=== PATIENT | female | born 2000 | race Caucasian/White ===

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

== ENCOUNTER 2022-05-17 19:55 | Emergency (ER) | payer BC ==
[~2022-05-17 19:55] MED LIST: CIPR250T3; ENAL10TA16; [UNRECOGNIZED DRUG - CODE]
[2022-05-17 20:36] LABS: INR 0.9 (0.8-1.4); PROTHROMBIN TIME PATIENT 12.5 SEC (12.2-14.7)
--- NOTE | 2022-05-17 20:40 | Diagnostic Imaging Report ---
EXAM: Chest 1 view, AP/PA only. INDICATION: Shortness of air. COMPARISON: None. FINDINGS: Normal heart size and central pulmonary vascularity. Lungs are clear. No pleural effusion or pneumothorax. No acute osseous finding. IMPRESSION: No acute cardiopulmonary finding. Dictated by: Dictated on workstation # [id number]
[2022-05-17 20:41] LABS: ALBUMIN 4.1 GM/DL (3.2-4.5); CHLORIDE 106 MMOL/L (98-107); POTASSIUM 4.5 MMOL/L (3.6-5.0); SODIUM 134 MMOL/L (135-145)
[2022-05-17 20:42] LABS: CALCIUM 9.2 MG/DL (8.5-10.1)
[2022-05-17 20:43] LABS: GLUCOSE 74 MG/DL (70-105)
[2022-05-17 20:44] LABS: TOTAL PROTEIN 7.7 GM/DL (6.4-8.2)
[2022-05-17 20:45] LABS: BILIRUBIN,TOTAL 0.3 MG/DL (0.1-1.0); CARBON DIOXIDE 16 MMOL/L (21-32)
[2022-05-17 20:47] LABS: ALKALINE PHOSPHATASE 75 U/L (40-136); CREATININE SERUM 2.35 MG/DL (0.60-1.30); GFR ESTIMATED 30; MAGNESIUM 1.8 MG/DL (1.6-2.4)
[2022-05-17 20:48] LABS: BUN/CREATININE RATIO 11
[2022-05-17 20:50] LABS: ALANINE AMINOTRANSFERASE 18 U/L (0-55)
--- NOTE | 2022-05-17 20:55 | ED Respiratory ---
General Chief Complaint: Respiratory Problems Stated Complaint: SOA,CP,BOTH LEGS SWELLING,HAS KIDNEY DISEASE Nursing Triage Note: TO ED VIA POV AND AMBULATORY TO ROOM 9 WITH C/O INCREASING SOA FOR SEVERAL DAYS, BUT "WORSE TODAY". ALSO C/O CP AND "EXTREME UPPER ABDOMEN PAIN". TOLD BY "SPECIALIST" TO COME TO ER FOR SONO OF LEGS AND CXR. HX OF POLYCYSTIC KIDNEY DISEASE. Source: patient Exam Limitations: no limitations History of Present Illness Date Seen by Provider: May 17, 2022 Time Seen by Provider: 20:32 Initial Comments This is a 22-year-old female with a history of polycystic kidney disease who presented to the ER with complaints of shortness of air, fluid retention, chest pain that radiates into her upper abdomen and around her back. Her symptoms have been present over the past month and she has been in communication with her benefits advisor due to side effects of her Jynarque. States she started Jynarque in August of this year and has been doing well up until this past month. States that her symptoms worsened this morning. She called her benefits advisor and was instructed to come to the ER for ultrasound of her legs and chest x-ray due to concerns for retention and DVTs. States that she discontinued her Jynarque on Sunday (6 days ago). Last menstrual period was the th of last month. She did have labs drawn yesterday and her creatinine was 1.8 which was down from her previous 2.4, her GFR was 38. States discomfort is more pressure in nature, worse with sitting up, standing, bending over. At this time she is resting comfortably currently rating discomfort 4 out of 10. States that her legs feel "heavier" but does not have any edema or erythema. Denies fever, chills, cough, nausea, vomiting Allergies and Home Medications Allergies Coded Allergies: No Known Drug Allergies (Unverified , 09/04/21) Patient Home Medication List Home Medication List Reviewed: Yes Ciprofloxacin HCl (Ciprofloxacin HCl) 250 Mg Tablet, (Reported) Entered as Reported by: ZAIRA FRY on 09/04/212346 Enalapril Maleate (Enalapril Maleate) 10 Mg Tablet, (Reported) Entered as Reported by: ZAIRA FRY on 09/04/212346 Tolvaptan (Jynarque) 1 Each Tablet.seq, (Reported) Entered as Reported by: ZAIRA FRY on 09/04/21 1571 Review of Systems Review of Systems Constitutional: see HPI Past Ctbzneu-Ugypeq-Unbmuq Hx Patient Social History Tobacco Use?: No Substance use?: No Alcohol Use?: No Immunizations Up To Date Influenza Vaccine Up-to-Date: No; Not Current COVID19 Vaccine Sports Official: STATES HAS HAD 2 VACCINES Past Medical History Surgery/Hospitalization HX: polycystic kidney disease, finger, oral surgery, htn Surgeries: Yes (SURGERY ON HER FINGER, ORAL SURGERY) Orthopedic Respiratory: No Cardiac: Yes (BP WITHOUT MEDICATIONS 140'S/100'S) Hypertension Neurological: No Last Menstrual Period: Apr 23, 2022 Reproductive Disorders: No Genitourinary: Yes (DX AGE 14) Polycystic Kidney Disease Gastrointestinal: No Musculoskeletal: No Endocrine: No HEENT: No Cancer: No Psychosocial: No Integumentary: No Blood Disorders: No Physical Exam Vital Signs - First Documented Capillary Refill : Less Than 3 Seconds Height: '" Weight: lbs. oz. kg; BMI Method: General Appearance: WD/WN, no apparent distress Eyes: Bilateral Eye Normal Inspection, Bilateral Eye PERRL, Bilateral Eye EOMI HEENT: PERRL/EOMI, normal ENT inspection, pharynx normal Neck: full range of motion, supple, normal inspection Respiratory: lungs clear, normal breath sounds, no respiratory distress, no accessory muscle use Cardiovascular: regular rate, rhythm, no edema, no murmur; No gallop/S3, No friction rub Gastrointestinal: normal bowel sounds, non tender, soft Extremities: normal range of motion, non-tender, normal inspection Neurologic/Psychiatric: no motor/sensory deficits, alert, normal mood/affect, oriented x 3 Skin: normal color, warm/dry Progress/Results/Core Measures Suspected Sepsis SIRS Temperature: Pulse: 72 Respiratory Rate: 18 Laboratory Tests 05/17/22 22:59: White Blood Count 10.5 Blood Pressure 147 /89 Mean: 108 Laboratory Tests 05/17/22 20:15: Creatinine 2.35H, INR Comment 0.9, Total Bilirubin 0.3 05/17/22 22:59: Platelet Count 302 Results/Orders Lab Results Laboratory Tests Test 05/17/22 20:15 05/17/22 20:19 05/17/22 21:25 05/17/22 22:59 Range/Units Prothrombin Time 12.5 12.2-14.7 SEC INR Comment 0.9 0.8-1.4 Activated Partial Thromboplast Time 27 24-35 SEC D-Dimer 0.47 0.00-0.49 UG/ML Sodium Level 134 L 135-145 MMOL/L Potassium Level 4.5 3.6-5.0 MMOL/L Chloride Level 106 98-107 MMOL/L Carbon Dioxide Level 16 L 21-32 MMOL/L Anion Gap 12 5-14 MMOL/L Blood Urea Nitrogen 25 H 7-18 MG/DL Creatinine 2.35 H 0.60-1.30 MG/DL Estimat Glomerular Filtration Rate 30 BUN/Creatinine Ratio 11 Glucose Level 74 70-105 MG/DL Calcium Level 9.2 8.5-10.1 MG/DL Corrected Calcium 9.1 8.5-10.1 MG/DL Magnesium Level 1.8 1.6-2.4 MG/DL Total Bilirubin 0.3 0.1-1.0 MG/DL Aspartate Amino Transf (AST/SGOT) 23 5-34 U/L Alanine Aminotransferase (ALT/SGPT) 18 0-55 U/L Alkaline Phosphatase 75 40-136 U/L Total Creatine Kinase 97 29-168 U/L Creatine Kinase MB 0.6 <6.6 NG/ML Myoglobin 38.7 10.0-92.0 NG/ML Troponin I < 0.028 <0.028 NG/ML Total Protein 7.7 6.4-8.2 GM/DL Albumin 4.1 3.2-4.5 GM/DL Lipase 32 8-78 U/L Influenza Type A (RT-PCR) Not Detected Not Detecte Influenza Type B (RT-PCR) Not Detected Not Detecte SARS-CoV-2 RNA (RT-PCR) Not Detected Not Detecte Blood Gas Puncture Site RRAD Blood Gas Patient Temperature 98.0 Arterial Blood pH 7.37 7.37-7.43 Arterial Blood Partial Pressure CO2 33 L 35-45 MMHG Arterial Blood Partial Pressure O2 109 H 79-93 MMHG Arterial Blood HCO3 19 L 23-27 MMOL/L Arterial Blood Total CO2 20.0 L 21.0-31.0 MMOL/L Arterial Blood Oxygen Saturation 98 94-100 % Arterial Blood Base Excess -5.4 L -2.5-2.5 MMOL/L Gualberto Test YES-POS Blood Gas Ventilator Setting NO Blood Gas Inspired Oxygen RA White Blood Count 10.5 4.3-11.0 10^3/uL Red Blood Count 3.93 3.80-5.11 10^6/uL Hemoglobin 11.2 L 11.5-16.0 g/dL Hematocrit 33 L 35-52 % Mean Corpuscular Volume 85 80-99 fL Mean Corpuscular Hemoglobin 29 25-34 pg Mean Corpuscular Hemoglobin Concent 34 32-36 g/dL Red Cell Distribution Width 12.4 10.0-14.5 % Platelet Count 302 130-400 10^3/uL Mean Platelet Volume 10.5 9.0-12.2 fL Immature Granulocyte % (Auto) 0 % Neutrophils (%) (Auto) 61 42-75 % Lymphocytes (%) (Auto) 32 12-44 % Monocytes (%) (Auto) 5 0-12 % Eosinophils (%) (Auto) 2 0-10 % Basophils (%) (Auto) 1 0-10 % Neutrophils # (Auto) 6.4 1.8-7.8 10^3/uL Lymphocytes # (Auto) 3.3 1.0-4.0 10^3/uL Monocytes # (Auto) 0.6 0.0-1.0 10^3/uL Eosinophils # (Auto) 0.2 0.0-0.3 10^3/uL Basophils # (Auto) 0.1 0.0-0.1 10^3/uL Immature Granulocyte # (Auto) 0.0 0.0-0.1 10^3/uL B-Type Natriuretic Peptide 14.7 <100.0 PG/ML My Orders Orders - JUJU TAVARES PRINCIPAL ARCHAEOLOGIST Cbc With Automated Diff (05/17/22 20:07) Comprehensive Metabolic Panel (05/17/22 20:07) Bnp Shannen (05/17/22 20:07) Chest 1 View, Ap/Pa Only (05/17/22 20:07) Covid 19 Inhouse Test (05/17/22 20:07) Influenza A And B By Pcr (05/17/22 20:07) Ekg Tracing (05/17/22 20:07) Magnesium (05/17/22 20:07) Myoglobin Serum (05/17/22 20:07) Protime With Inr (05/17/22 20:07) Partial Thromboplastin Time (05/17/22 20:07) O2 (05/17/22 20:07) Monitor-Rhythm Ecg Trace Only (05/17/22 20:07) Ed Iv/Invasive Line Start (05/17/22 20:07) Creatine Kinase (05/17/22 20:07) Creatine Kinase Mb (05/17/22 20:07) Lipase (05/17/22 20:07) Troponin I Crisp (05/17/22 20:07) Fibrin Degradation Products (05/17/22 20:27) Arterial Blood Gas (05/17/22 21:10) Arterial Blood Gas (05/17/22 21:25) Vital Signs/I&O 05/17/22 05/17/22 05/17/22 20:04 20:04 23:35 Temp 36.8 36.7 Pulse 72 88 Resp 18 18 B/P (MAP) 147/89 (108) 147/88 Pulse Ox 100 95 O2 Delivery Room Air Room Air Room Air Capillary Refill : Less Than 3 Seconds Blood Pressure Mean: 108 Progress Note : Progress Note Two missed urine collections. She has compensated metabolic acidosis, discussed starting sodium bicarb tablet. Has concerns for fluid retention and will plan to wait till morning and consult with her benefits advisor. Has no urinary tract symptoms, no flank pain. Has been on Lisinopril for several years. Diagnostic Imaging Diagonstic Imaging: Xray Plain Films/CT/US/NM/MRI: chest Comments [facility], [place] NAME: VASILE LUO Yumiko [facility] REC#: [id number] PT STATUS: REG ER : 2000 PHYSICIAN: JUJU TAVARES PRINCIPAL ARCHAEOLOGIST ADMIT DATE: 05/17/22/ER Draft Date of Exam:05/17/22 CHEST 1 VIEW, AP/PA ONLY EXAM: Chest 1 view, AP/PA only. INDICATION: Shortness of air. COMPARISON: None. FINDINGS: Normal heart size and central pulmonary vascularity. Lungs are clear. No pleural effusion or pneumothorax. No acute osseous finding. IMPRESSION: No acute cardiopulmonary finding. Dictated on workstation # [id number] Dict: 05/17/222036 Trans: 05/17/222038 [facility] [id number] Interpreted by: JEREMY MERCHANT MD Electronically signed by: Reviewed: Reviewed by Me Departure Impression Primary Impression: PKD (polycystic kidney disease) Additional Impression: Compensated metabolic acidosis Disposition: HOME, SELF-CARE Condition: Improved Departure-Patient Inst. Decision time for Depature: 23:27 Referrals: NO,LOCAL PHYSICIAN (PCP/Family) Primary Care Physician Patient Instructions: Polycystic Kidney Disease, Metabolic Acidosis Add. Discharge Instructions: Plan: 1. Call your benefits advisor first thing in the morning and review lab results. You were given copies of all your results from your emergency department visit today. 2. Return to the ER if you have any new, concerning, worsening symptoms. 3. If you are unable to have close follow-up and have worsening symptoms again please return to emergency department. All discharge instructions reviewed with patient and/or family. Voiced understanding. JUJU TAVARES PRINCIPAL ARCHAEOLOGIST May 17, 2022 20:55
[2022-05-17 20:57] LABS: CREATINE KINASE MB 0.6 NG/ML (<6.6)
[2022-05-17 22:01] LABS: ABG BASE EXCESS -5.4 MMOL/L (-2.5-2.5); ABG OXYGEN SATURATION 98 % (94-100); ABG PCO2 33 MMHG (35-45); ABG PH 7.37 (7.37-7.43); ABG PO2 109 MMHG (79-93); ALLENS TEST YES-POS
[2022-05-17 22:02] LABS: INSPIRED O2 RA; VENTILATOR NO
[2022-05-17 23:06] LABS: BASOPHILS # (AUTO) 0.1 10^3/uL (0.0-0.1); BASOPHILS % (AUTO) 1 % (0-10); EOSINOPHILS # (AUTO) 0.2 10^3/uL (0.0-0.3); EOSINOPHILS % (AUTO) 2 % (0-10); HEMATOCRIT 33 % (35-52); HEMOGLOBIN 11.2 g/dL (11.5-16.0); LYMPHOCYTES # (AUTO) 3.3 10^3/uL (1.0-4.0); LYMPHOCYTES % (AUTO) 32 % (12-44); MEAN CORPUSCULAR HEMOGLOBIN 29 pg (25-34); MEAN CORPUSCULAR HGB CONC 34 g/dL (32-36); MEAN CORPUSCULAR VOLUME 85 fL (80-99); MEAN PLATELET VOLUME 10.5 fL (9.0-12.2); MONOCYTES # (AUTO) 0.6 10^3/uL (0.0-1.0); MONOCYTES % (AUTO) 5 % (0-12); NEUTROPHILS # (AUTO) 6.4 10^3/uL (1.8-7.8); NEUTROPHILS % (AUTO) 61 % (42-75); PLATELET COUNT 302 10^3/uL (130-400); WHITE BLOOD COUNT 10.5 10^3/uL (4.3-11.0)
[2022-05-17 23:35] VITALS: BP 147/88
== END 2022-05-17 23:35 | disposition home or self-care (01) ==
LOC: EDUNIT# 19:55 → ER 19:57
DX: Q61.3 Polycystic kidney, unspecified (principal); E87.20 Acidosis, unspecified; Z20.822 Contact with and (suspected) exposure to COVID-19
CPT/HCPCS: 36415; 71045; 80053; 82550; 82553; 82805; 83690; 83735; 83874; 83880; 84484; 85025; 85379; 85610; 85730; 87636; 93005; 93041

== ENCOUNTER 2022-05-19 19:57 | Emergency (ER) | payer BC ==
[~2022-05-19] VITALS: Ht 172 cm; Wt 70.0 kg
[2022-05-19] MEDS ORDERED: ASPIRIN 81 MG CHEW (CHILDREN'S ASA) PO ONE (20:15)
--- NOTE | 2022-05-19 20:30 | ED General ---
General Chief Complaint: General Problems/Pain Stated Complaint: SOA/CHEST PAIN/KIDNEY PAIN/DIZZINESS/FATIGUE Nursing Triage Note: Patient presented to the ER tonight with complaints of chest pain, soa, fatigue, swelling in legs and feet. She advised she was seen in the department two days ago and was diagnosed with metabolic acidosis. She was told that she needed to return if her symptoms worsened. Source of Information: Patient History of Present Illness Date Seen by Provider: May 19, 2022 Time Seen by Provider: 20:04 Initial Comments PT ARRIVES VIA POV FROM HOME WITH HER BOYFRIEND PT STATES SHE HAS BEEN HAVING THESE SYMPTOMS FOR THE LAST MONTH, BUT HAVE BEEN "SEVERE" THE LAST 2 DAYS C/O CHEST PAIN--PAIN IS IN CENTER OF CHEST, DOES NOT RADIATE, COMES AND GOES. PAIN IS "DULL HEAVINESS BUT ALSO SHARP QUICK PAINS TOO" RATES PAIN 8/10 AT WORST, 4/10 NOW HAS NOT TAKEN ANYTHING FOR PAIN PAIN IS WORSE WITH MOVEMENT OR TALKING OR ACTIVITY, HELPS IF SHE LAYS DOWN SHE ALSO C/O SHORTNESS OF BREATH THAT COMES AND GOES--STATES "IT'S THERE MORE THAN IT ISN'T" + SWEATS "HOT FLASHES" BUT DENIES FEVER NO CHILLS C/O FATIGUE C/O DIZZINESS NO COUGH OR URI SYMPTOMS NO NAUSEA/VOMITING/DIARRHEA/ABDOMINAL PAIN NO BACK PAIN HAS HAD SWELLING IN BOTH OF HER LEGS, NOT TODAY HAD ULTRASOUND OF BOTH LEGS EARLIER TODAY--NORMAL / NO DVT PT HAS HISTORY OF HTN, AND HAS BEEN ON MEDICATION X 9 YEARS--LISINOPRIL NO MISSED DOSES OF MEDICATIONS AND TOOK MEDS TODAY PT ALSO HAS POLYCYSTIC KIDNEY DISEASE DX AT AGE 14 WAS STARTED ON A NEW MEDICATION RECENTLY--JYNARQUE / TOLVAPTAN, BUT STOPPED IT ON SUNDAY, DUE TO THESE SYMPTOMS SHE WAS SEEN HERE IN ER 2 DAYS AGO FOR THESE SYMPTOMS, WORK UP WAS ESSENTIALLY NEGATIVE, EXCEPT FOR METABOLIC ACIDOSIS. SHE WAS STARTED ON SODIUM BICARBONATE AT THAT TIME PT IS URINATING NORMALLY AND NOT HAVING URINARY SYMPTOMS LMP 04/27/22. NORMAL. NO CONTROL. HAS NOT TAKEN ANYTHING FOR HER CHEST PAIN PCP: NONE ONLY DR HURLEY SEES IS HER HAND HARDENER IN [place]. HAS AN APPOINTMENT ON Sunday05/22/22 Allergies and Home Medications Allergies Coded Allergies: No Known Drug Allergies (Unverified , 09/04/21) Patient Home Medication List Home Medication List Reviewed: Yes Ciprofloxacin HCl (Ciprofloxacin HCl) 250 Mg Tablet, (Reported) Entered as Reported by: ZAIRA FRY on 09/04/212346 Enalapril Maleate (Enalapril Maleate) 10 Mg Tablet, (Reported) Entered as Reported by: ZAIRA FRY on 09/04/212346 Tolvaptan (Jynarque) 1 Each Tablet.seq, (Reported) Entered as Reported by: ZAIRA FRY on 09/04/212346 Review of Systems Review of Systems Constitutional: see HPI, diaphoresis, dizziness, malaise, weakness EENTM: no symptoms reported Respiratory: see HPI; No cough; dyspnea on exertion; No orthopnea; short of breath; No wheezing Cardiovascular: see HPI, chest pain, edema; No palpitations, No syncope, No vascular heart diseas Gastrointestinal: no symptoms reported; No abdominal pain, No diarrhea, No loss of appetite, No nausea, No vomiting Genitourinary: no symptoms reported Musculoskeletal: no symptoms reported Skin: no symptoms reported Psychiatric/Neurological: No Symptoms Reported Hematologic/Lymphatic: No Symptoms Reported Immunological/Allergic: no symptoms reported Past Qnzqeqn-Jdrirg-Dbspju Hx Patient Social History Tobacco Use?: No Smoking Status: Never a Smoker Smokeless Tobacco Frequency: Never a User Use of E-Cig and/or Vaping dev: No Use of E-Cig and/or Vaping Alexis: Never a User Substance use?: No Alcohol Use?: No Pt feels they are or have been: No Immunizations Up To Date Influenza Vaccine Up-to-Date: Yes; Up-to-Date Second COVID19 Vaccination Negro: 12/02 COVID19 Vaccine 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: 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 Past Medical History Surgery/Hospitalization HX: polycystic kidney disease, finger, oral surgery, htn Surgeries: Yes (SURGERY ON HER FINGER, ORAL SURGERY) Orthopedic Respiratory: No Cardiac: Yes (BP WITHOUT MEDICATIONS 140'S/100'S) Hypertension Neurological: No Reproductive Disorders: No Genitourinary: Yes (DX AGE 14) Polycystic Kidney Disease Gastrointestinal: No Musculoskeletal: No Endocrine: No HEENT: No Cancer: No Psychosocial: No Integumentary: No Blood Disorders: No Physical Exam Vital Signs Vital Signs - First Documented 05/19/22 20:04 Temp 36.7 Pulse 78 Resp 18 B/P (MAP) 126/71 (89) Pulse Ox 98 O2 Delivery Room Air Capillary Refill : Less Than 3 Seconds Height, Weight, BMI Height: '" Weight: lbs. oz. kg; 23.00 BMI Method: General Appearance: No Apparent Distress, WD/WN, Other (DOES NOT APPEAR ILL OR TO BE IN ANY DISCOMFORT OR DISTRESS) HEENT: PERRL/EOMI Neck: Normal Inspection; No JVD Respiratory: Normal Breath Sounds, No Accessory Muscle Use, No Respiratory Distress, Other (MARKED UPPER AND MID STERNAL TENDERNESS--PALPATION DRAMATICALLY REPRODUCES PAIN ) Cardiovascular: Regular Rate, Rhythm, No Edema, No JVD, No Murmur, Normal Peripheral Pulses Gastrointestinal: Non Tender, Soft, Other (ABDOMEN IS ROTUND ) Back: No CVA Tenderness Extremity: Normal Capillary Refill, Normal Inspection, Normal Range of Motion, Non Tender, No Calf Tenderness, No Pedal Edema Neurologic/Psychiatric: Alert, Oriented x3, No Motor/Sensory Deficits, Normal Mood/Affect, strip feeder II-XII Norm as Tested Skin: Normal Color, Warm/Dry; No Rash Focused Exam Lactate Level 05/19/22 20:26: Lactic Acid Level 0.83 Lactic Acid Level Laboratory Tests Test 05/19/22 20:26 Lactic Acid Level 0.83 MMOL/L (0.50-2.00) Progress/Results/Core Measures Suspected Sepsis SIRS Temperature: Pulse: 78 Respiratory Rate: 18 Laboratory Tests 05/19/22 20:26: White Blood Count 10.3 Blood Pressure 126 /71 Mean: 89 05/19/22 20:26: Lactic Acid Level 0.83 Laboratory Tests 05/19/22 20:26: Creatinine 1.79H, Platelet Count 319, Total Bilirubin 0.3 Results/Orders Lab Results Laboratory Tests Test 05/19/22 20:26 05/19/22 20:32 05/19/22 21:12 Range/Units White Blood Count 10.3 4.3-11.0 10^3/uL Red Blood Count 3.99 3.80-5.11 10^6/uL Hemoglobin 11.5 11.5-16.0 g/dL Hematocrit 33 L 35-52 % Mean Corpuscular Volume 84 80-99 fL Mean Corpuscular Hemoglobin 29 25-34 pg Mean Corpuscular Hemoglobin Concent 35 32-36 g/dL Red Cell Distribution Width 12.3 10.0-14.5 % Platelet Count 319 130-400 10^3/uL Mean Platelet Volume 10.8 9.0-12.2 fL Immature Granulocyte % (Auto) 0 % Neutrophils (%) (Auto) 63 42-75 % Lymphocytes (%) (Auto) 29 12-44 % Monocytes (%) (Auto) 6 0-12 % Eosinophils (%) (Auto) 2 0-10 % Basophils (%) (Auto) 1 0-10 % Neutrophils # (Auto) 6.5 1.8-7.8 10^3/uL Lymphocytes # (Auto) 3.0 1.0-4.0 10^3/uL Monocytes # (Auto) 0.6 0.0-1.0 10^3/uL Eosinophils # (Auto) 0.2 0.0-0.3 10^3/uL Basophils # (Auto) 0.1 0.0-0.1 10^3/uL Immature Granulocyte # (Auto) 0.0 0.0-0.1 10^3/uL Erythrocyte Sedimentation Rate 40 H 0-20 MM/HR Sodium Level 134 L 135-145 MMOL/L Potassium Level 5.0 3.6-5.0 MMOL/L Chloride Level 104 98-107 MMOL/L Carbon Dioxide Level 18 L 21-32 MMOL/L Anion Gap 12 5-14 MMOL/L Blood Urea Nitrogen 30 H 7-18 MG/DL Creatinine 1.79 H 0.60-1.30 MG/DL Estimat Glomerular Filtration Rate 41 BUN/Creatinine Ratio 17 Glucose Level 84 70-105 MG/DL Lactic Acid Level 0.83 0.50-2.00 MMOL/L Calcium Level 9.4 8.5-10.1 MG/DL Corrected Calcium 9.4 8.5-10.1 MG/DL Phosphorus Level 3.2 2.3-4.7 MG/DL Magnesium Level 1.7 1.6-2.4 MG/DL Total Bilirubin 0.3 0.1-1.0 MG/DL Aspartate Amino Transf (AST/SGOT) 24 5-34 U/L Alanine Aminotransferase (ALT/SGPT) 18 0-55 U/L Alkaline Phosphatase 78 40-136 U/L Total Creatine Kinase 70 29-168 U/L Creatine Kinase MB 0.5 <6.6 NG/ML Myoglobin 32.1 10.0-92.0 NG/ML Troponin I < 0.028 <0.028 NG/ML C-Reactive Protein High Sensitivity 1.04 H 0.00-0.50 MG/DL B-Type Natriuretic Peptide < 10.0 <100.0 PG/ML Total Protein 7.8 6.4-8.2 GM/DL Albumin 4.0 3.2-4.5 GM/DL Amylase Level 70 25-125 U/L Lipase 33 8-78 U/L Serum Test, Qualitative NEGATIVE NEGATIVE Influenza Type A (RT-PCR) Not Detected Not Detecte Influenza Type B (RT-PCR) Not Detected Not Detecte SARS-CoV-2 RNA (RT-PCR) Not Detected Not Detecte Blood Gas Puncture Site right radial Blood Gas Patient Temperature UNKNOWN Arterial Blood pH 7.39 7.37-7.43 Arterial Blood Partial Pressure CO2 35 35-45 MMHG Arterial Blood Partial Pressure O2 90 79-93 MMHG Arterial Blood HCO3 21 L 23-27 MMOL/L Arterial Blood Total CO2 21.8 21.0-31.0 MMOL/L Arterial Blood Oxygen Saturation 98 94-100 % Arterial Blood Base Excess -3.5 L -2.5-2.5 MMOL/L Gualberto Test YES-POS Blood Gas Ventilator Setting NO Blood Gas Inspired Oxygen RA Urine Color YELLOW Urine Clarity CLEAR Urine pH 6.5 5-9 Urine Specific [place] 1.010 L 1.016-1.022 Urine Protein NEGATIVE NEGATIVE Urine Glucose (UA) NEGATIVE NEGATIVE Urine Ketones NEGATIVE NEGATIVE Urine Nitrite NEGATIVE NEGATIVE Urine Bilirubin NEGATIVE NEGATIVE Urine Urobilinogen 0.2 < = 1.0 MG/DL Urine Leukocyte Esterase 1+ H NEGATIVE Urine RBC (Auto) 1+ H NEGATIVE Urine RBC 5-10 H /HPF Urine WBC 5-10 H /HPF Urine Squamous Epithelial Cells 0-2 /HPF Urine Crystals NONE /LPF Urine Bacteria TRACE /HPF Urine Casts NONE /LPF Urine Mucus NEGATIVE /LPF Urine Culture Indicated YES My Orders Orders - ARPITA INIGUEZ DO Ed Iv/Invasive Line Start (05/19/22 20:11) Urine Bedside (05/19/22 20:11) Ekg Tracing (05/19/22 20:11) Monitor-Rhythm Ecg Trace Only (05/19/22 20:11) Amylase (05/19/22 20:11) Arterial Blood Gas (05/19/22 20:11) Bnp Cherry (05/19/22 20:11) Cbc With Automated Diff (05/19/22 20:11) Comprehensive Metabolic Panel (05/19/22 20:11) Creatine Kinase (05/19/22 20:11) Creatine Kinase Mb (05/19/22 20:11) Hs C Reactive Protein (05/19/22 20:11) Fibrin Degradation Products (05/19/22 20:11) Hcg,Qualitative Serum (05/19/22 20:11) Lactic Acid Analyzer (05/19/22 20:11) Lipase (05/19/22 20:11) Magnesium (05/19/22 20:11) Protime With Inr (05/19/22 20:11) Partial Thromboplastin Time (05/19/22 20:11) Ua Culture If Indicated (05/19/22 20:11) Phosphorus (05/19/22 20:11) Erythrocyte Sedimentation Rate (05/19/22 20:11) Myoglobin Serum (05/19/22 20:11) Troponin I Shannen (05/19/22 20:11) Chest 1 View, Ap/Pa Only (05/19/22 20:11) Ed Iv/Invasive Line Start (05/19/22 20:11) Aspirin Chewable Tablet (Baby Aspirin Ch (05/19/22 20:15) Covid 19 Inhouse Test (05/19/22 20:11) Influenza A And B By Pcr (05/19/22 20:11) Isolation Central Supply Req (05/19/22 20:11) Urine Culture (05/19/22 21:12) Medications Given in ED Current Medications Medications Dose Ordered Sig/Keri Route Start Time Stop Time Status Last Admin Dose Admin Aspirin 324 mg ONCE ONCE PO 05/19/22 20:15 05/19/22 20:16 DC 05/19/22 20:27 324 MG Vital Signs/I&O 05/19/22 05/19/22 20:04 21:36 Temp 36.7 Pulse 78 78 Resp 18 14 B/P (MAP) 126/71 (89) 110/72 Pulse Ox 98 99 O2 Delivery Room Air Room Air Capillary Refill : Less Than 3 Seconds Blood Pressure Mean: 89 Progress Note : Progress Note GIVEN ASPIRIN UNEVENTFUL ER STAY VITALS ALL NORMAL, AND O2 SAT 100% FOR ENTIRE ER STAY REVIEWED ALL TEST RESULTS WITH PATIENT, INCLUDING ULTRASOUND DONE EARLIER TODAY ECG Initial ECG Impression Date: May 19, 2022 Initial ECG Impression Time: 20:25 Initial ECG Rate: 70 Initial ECG Rhythm: Normal Sinus Initial ECG Impression: Normal Diagnostic Imaging Comments CXR--PER RADIOLOGIST REPORT AT 2112 FINDINGS: The lung volumes are normal. No focal consolidation is seen. No large pleural effusion or pneumothorax is seen. The cardiomediastinal silhouette is normal in size and contour. No acute osseous abnormality is seen. IMPRESSION: No acute pulmonary abnormality seen. Reviewed: Reviewed by Me Departure Impression Primary Impression: Chest wall pain Additional Impression: PKD (polycystic kidney disease) Disposition: HOME, SELF-CARE Condition: Stable Departure-Patient Inst. Decision time for Depature: 21:33 Referrals: NO,LOCAL PHYSICIAN (PCP/Family) Primary Care Physician Patient Instructions: Chest Pain (DC) Add. 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 Voiced understanding. ARPITA INIGUEZ DO May 19, 2022 20:30
[2022-05-19 20:34] LABS: BASOPHILS # (AUTO) 0.1 10^3/uL (0.0-0.1); BASOPHILS % (AUTO) 1 % (0-10); EOSINOPHILS # (AUTO) 0.2 10^3/uL (0.0-0.3); EOSINOPHILS % (AUTO) 2 % (0-10); HEMATOCRIT 33 % (35-52); HEMOGLOBIN 11.5 g/dL (11.5-16.0); LYMPHOCYTES % (AUTO) 29 % (12-44); MEAN CORPUSCULAR HEMOGLOBIN 29 pg (25-34); MEAN CORPUSCULAR HGB CONC 35 g/dL (32-36); MEAN CORPUSCULAR VOLUME 84 fL (80-99); MEAN PLATELET VOLUME 10.8 fL (9.0-12.2); MONOCYTES # (AUTO) 0.6 10^3/uL (0.0-1.0); MONOCYTES % (AUTO) 6 % (0-12); NEUTROPHILS # (AUTO) 6.5 10^3/uL (1.8-7.8); NEUTROPHILS % (AUTO) 63 % (42-75); PLATELET COUNT 319 10^3/uL (130-400); WHITE BLOOD COUNT 10.3 10^3/uL (4.3-11.0)
[2022-05-19 20:38] LABS: ABG BASE EXCESS -3.5 MMOL/L (-2.5-2.5); ABG OXYGEN SATURATION 98 % (94-100); ABG PCO2 35 MMHG (35-45); ABG PH 7.39 (7.37-7.43); ABG PO2 90 MMHG (79-93); ABG TCO2 21.8 MMOL/L (21.0-31.0)
[2022-05-19 20:39] LABS: ALLENS TEST YES-POS; INSPIRED O2 RA; VENTILATOR NO
[2022-05-19 20:52] LABS: ERYTHROCYTE SEDIMENTATION RATE 40 MM/HR (0-20)
[2022-05-19 20:54] LABS: ALANINE AMINOTRANSFERASE 18 U/L (0-55); ALKALINE PHOSPHATASE 78 U/L (40-136); AMYLASE 70 U/L (25-125); BILIRUBIN,TOTAL 0.3 MG/DL (0.1-1.0); BUN/CREATININE RATIO 17; CALCIUM 9.4 MG/DL (8.5-10.1); CARBON DIOXIDE 18 MMOL/L (21-32); CHLORIDE 104 MMOL/L (98-107); CREATINE KINASE 70 U/L (29-168); CREATININE SERUM 1.79 MG/DL (0.60-1.30); GFR ESTIMATED 41; GLUCOSE 84 MG/DL (70-105); LIPASE 33 U/L (8-78); MAGNESIUM 1.7 MG/DL (1.6-2.4); PHOSPHORUS 3.2 MG/DL (2.3-4.7); SODIUM 134 MMOL/L (135-145); TOTAL PROTEIN 7.8 GM/DL (6.4-8.2)
[2022-05-19 21:01] LABS: CREATINE KINASE MB 0.5 NG/ML (<6.6)
--- NOTE | 2022-05-19 21:04 | Diagnostic Imaging Report ---
PATIENT HISTORY: Chest pain. TECHNIQUE: Single frontal view of the chest. COMPARISON: 05/17/2022. FINDINGS: The lung volumes are normal. No focal consolidation is seen. No large pleural effusion or pneumothorax is seen. The cardiomediastinal silhouette is normal in size and contour. No acute osseous abnormality is seen. IMPRESSION: No acute pulmonary abnormality seen. Dictated by: Dictated on workstation # [id number]
[2022-05-19 21:20] LABS: BILIRUBIN,URINE NEGATIVE (NEGATIVE); CLARITY,URINE CLEAR; COLOR,URINE YELLOW; GLUCOSE, URINE (UA) NEGATIVE (NEGATIVE); KETONES,URINE NEGATIVE (NEGATIVE); LEUKOCYTE ESTERASE ,URINE 1+ (NEGATIVE); NITRITE,URINE NEGATIVE (NEGATIVE); PH,URINE 6.5 (5-9); PROTEIN,URINE NEGATIVE (NEGATIVE)
[2022-05-19 21:34] LABS: BACTERIA,URINE TRACE /HPF; SQUAMOUS EPITHELIAL CELL,UR 0-2 /HPF
[2022-05-19 21:36] VITALS: BP 110/72
== END 2022-05-19 21:49 | disposition home or self-care (01) ==
LOC: EDUNIT# 19:57 → ER 20:00
DX: Q61.3 Polycystic kidney, unspecified (principal); Z20.822 Contact with and (suspected) exposure to COVID-19
CPT/HCPCS: 36415; 71045; 80053; 81000; 82150; 82550; 82553; 82805; 83605; 83690; 83735; 83874; 83880; 84100; 84484; 84703; 85025; 85652; 86141; 87088; 87636; 93005; 93041

== ENCOUNTER → 2022-05-19 | Outpatient (CLI) | payer BC ==
--- NOTE | 2022-05-19 15:27 | Diagnostic Imaging Report ---
PROCEDURE: US Venous Lower Ext Tor. TECHNIQUE: Multiple Real-time grayscale images were obtained over the lower extremities in various projections, bilaterally. Additional duplex Doppler and color Doppler images were also obtained. INDICATION: Bilateral leg swelling. FINDINGS: There is no evidence of right or left lower extremity DVT. Both lower extremity deep venous systems demonstrate normal compressibility with normal response to augmentation and Valsalva. No fluid collection or mass is detected. IMPRESSION: No evidence of right or left lower extremity DVT. Dictated by: Dictated on workstation # [id number]
== END ==
LOC: RAD 13:30
PROVIDERS: ATTEND Internal Medicine
DX: R60.0 Localized edema (principal); M79.89 Other specified soft tissue disorders
CPT/HCPCS: 93970

== ENCOUNTER → 2022-06-09 | Outpatient (CLI) | payer BC | LOC: CARD 13:30 | PROVIDERS: ATTEND Internal Medicine | DX: R06.00 Dyspnea, unspecified (principal) | CPT/HCPCS: 93306 ==

== ENCOUNTER 2022-06-15 19:59 | Emergency (ER) | payer BC ==
[~2022-06-15] VITALS: Ht 152 cm; Wt 75.0 kg
[2022-06-15] MEDS ORDERED: NF-SODBICA (20:09)
[2022-06-15] MEDS ORDERED: [UNRECOGNIZED DRUG - CODE] (20:09)
[2022-06-15] MEDS ORDERED: ASPIRIN 81 MG CHEW (CHILDREN'S ASA) PO ONE (20:15)
--- NOTE | 2022-06-15 20:33 | Diagnostic Imaging Report ---
INDICATION: Chest pain. COMPARISON: 05/19/2022 FINDINGS: Single frontal view of the chest demonstrates normal heart size and pulmonary vascularity. The lungs show somewhat low inspiratory volumes, but are otherwise clear. No large pleural effusion or pneumothorax is seen. The visualized osseous structures show no acute abnormalities. IMPRESSION: No acute cardiopulmonary process. Dictated by: Dictated on workstation # [id number]
--- NOTE | 2022-06-15 20:36 | ED Chest Pain ---
General Chief Complaint: Chest Pain Stated Complaint: CHEST PAIN,ARMS TINGLING,SOA Nursing Triage Note: MID CHEST PAIN, SOA, WEAKNESS WORSE SINCE 1400 Allergies and Home Medications Allergies Coded Allergies: No Known Drug Allergies (Unverified , 09/04/21) Patient Home Medication List Ciprofloxacin HCl (Ciprofloxacin HCl) 250 Mg Tablet, (Reported) Entered as Reported by: ZAIRA FRY on 09/04/212346 Enalapril Maleate (Enalapril Maleate) 10 Mg Tablet, (Reported) Entered as Reported by: ZAIRA FRY on 09/04/212346 Sodium Bicarbonate (Sodium Bicarbonate) 650 Mg Tablet, (Reported) Entered as Reported by: ZAIRA FRY on 06/15/222008 Last Action: New Order Tolvaptan (Jynarque) 1 Each Tablet.seq, (Reported) Entered as Reported by: ZAIRA FRY on 09/04/212346 Tolvaptan (Jynarque) 60 Mg (Am)/30 Mg (Pm) Tablet.seq, (Reported) Entered as Reported by: ZAIRA FRY on 06/15/222008 Last Action: New Order Past Yxqrppr-Iceraf-Eaupek Hx Patient Social History Tobacco Use?: No Substance use?: No Alcohol Use?: No Pt feels they are or have been: No Immunizations Up To Date First/Initial COVID19 Vaccinat: X2 Second COVID19 Vaccination Negro: 12/02 Past Medical History Surgery/Hospitalization HX: polycystic kidney disease, finger, oral surgery, htn, SEPTAL HYPERTROPHY Surgeries: Yes (SURGERY ON HER FINGER, ORAL SURGERY) Orthopedic Respiratory: No Cardiac: Yes (BP WITHOUT MEDICATIONS 140'S/100'S) Hypertension Neurological: No Reproductive Disorders: No Genitourinary: Yes (DX AGE 14) Polycystic Kidney Disease Gastrointestinal: No Musculoskeletal: No Endocrine: No HEENT: No Cancer: No Psychosocial: No Integumentary: No Blood Disorders: No Physical Exam Vital Signs Vital Signs - First Documented 06/15/22 20:04 Temp 36.8 Pulse 85 Resp 16 B/P (MAP) 125/73 (90) Pulse Ox 100 O2 Delivery Room Air Capillary Refill : Less Than 3 Seconds Height, Weight, BMI Height: '" Weight: lbs. oz. kg; 32.00 BMI Method: Progress/Results/Core Measures Results/Orders Lab Results Laboratory Tests Test 06/15/22 20:34 06/15/22 20:35 06/15/22 20:50 06/15/22 20:58 Range/Units Prothrombin Time 13.1 12.2-14.7 SEC INR Comment 1.0 0.8-1.4 Activated Partial Thromboplast Time 30 24-35 SEC D-Dimer <= 0.27 0.00-0.49 UG/ML Influenza Type A (RT-PCR) Not Detected Not Detecte Influenza Type B (RT-PCR) Not Detected Not Detecte SARS-CoV-2 RNA (RT-PCR) Not Detected Not Detecte White Blood Count 10.6 4.3-11.0 10^3/uL Red Blood Count 4.29 3.80-5.11 10^6/uL Hemoglobin 12.1 11.5-16.0 g/dL Hematocrit 36 35-52 % Mean Corpuscular Volume 85 80-99 fL Mean Corpuscular Hemoglobin 28 25-34 pg Mean Corpuscular Hemoglobin Concent 33 32-36 g/dL Red Cell Distribution Width 12.1 10.0-14.5 % Platelet Count 319 130-400 10^3/uL Mean Platelet Volume 11.1 9.0-12.2 fL Immature Granulocyte % (Auto) 0 % Neutrophils (%) (Auto) 56 42-75 % Lymphocytes (%) (Auto) 34 12-44 % Monocytes (%) (Auto) 7 0-12 % Eosinophils (%) (Auto) 2 0-10 % Basophils (%) (Auto) 1 0-10 % Neutrophils # (Auto) 6.0 1.8-7.8 10^3/uL Lymphocytes # (Auto) 3.7 1.0-4.0 10^3/uL Monocytes # (Auto) 0.7 0.0-1.0 10^3/uL Eosinophils # (Auto) 0.2 0.0-0.3 10^3/uL Basophils # (Auto) 0.1 0.0-0.1 10^3/uL Immature Granulocyte # (Auto) 0.0 0.0-0.1 10^3/uL Erythrocyte Sedimentation Rate 33 H 0-20 MM/HR Sodium Level 136 135-145 MMOL/L Potassium Level 3.8 3.6-5.0 MMOL/L Chloride Level 104 98-107 MMOL/L Carbon Dioxide Level 20 L 21-32 MMOL/L Anion Gap 12 5-14 MMOL/L Blood Urea Nitrogen 27 H 7-18 MG/DL Creatinine 1.87 H 0.60-1.30 MG/DL Estimat Glomerular Filtration Rate 39 BUN/Creatinine Ratio 14 Glucose Level 89 70-105 MG/DL Calcium Level 9.7 8.5-10.1 MG/DL Corrected Calcium 9.5 8.5-10.1 MG/DL Magnesium Level 1.9 1.6-2.4 MG/DL Total Bilirubin 0.2 0.1-1.0 MG/DL Aspartate Amino Transf (AST/SGOT) 17 5-34 U/L Alanine Aminotransferase (ALT/SGPT) 16 0-55 U/L Alkaline Phosphatase 91 40-136 U/L Total Creatine Kinase 60 29-168 U/L Creatine Kinase MB 0.4 <6.6 NG/ML Myoglobin 36.0 10.0-92.0 NG/ML Troponin I < 0.028 <0.028 NG/ML C-Reactive Protein High Sensitivity 1.39 H 0.00-0.50 MG/DL B-Type Natriuretic Peptide < 10.0 <100.0 PG/ML Total Protein 7.7 6.4-8.2 GM/DL Albumin 4.2 3.2-4.5 GM/DL Amylase Level 65 25-125 U/L Lipase 28 8-78 U/L Serum Test, Qualitative NEGATIVE NEGATIVE Urine Color YELLOW Urine Clarity CLEAR Urine pH 7.0 5-9 Urine Specific [place] <=1.005 1.016-1.022 Urine Protein NEGATIVE NEGATIVE Urine Glucose (UA) NEGATIVE NEGATIVE Urine Ketones NEGATIVE NEGATIVE Urine Nitrite NEGATIVE NEGATIVE Urine Bilirubin NEGATIVE NEGATIVE Urine Urobilinogen 0.2 < = 1.0 MG/DL Urine Leukocyte Esterase TRACE H NEGATIVE Urine RBC (Auto) NEGATIVE NEGATIVE Urine RBC NONE /HPF Urine WBC 5-10 H /HPF Urine Squamous Epithelial Cells 0-2 /HPF Urine Crystals NONE /LPF Urine Bacteria FEW H /HPF Urine Casts NONE /LPF Urine Mucus NEGATIVE /LPF Urine Culture Indicated YES Urine Opiates Screen NEGATIVE NEGATIVE Urine Oxycodone Screen NEGATIVE NEGATIVE Urine Methadone Screen NEGATIVE NEGATIVE Urine Propoxyphene Screen NEGATIVE NEGATIVE Urine Barbiturates Screen NEGATIVE NEGATIVE Ur Tricyclic Antidepressants Screen NEGATIVE NEGATIVE Urine Phencyclidine Screen NEGATIVE NEGATIVE Urine Amphetamines Screen NEGATIVE NEGATIVE Urine Methamphetamines Screen NEGATIVE NEGATIVE Urine Benzodiazepines Screen NEGATIVE NEGATIVE Urine Cocaine Screen NEGATIVE NEGATIVE Urine Cannabinoids Screen NEGATIVE NEGATIVE My Orders Orders - ARPITA INIGUEZ DO Ed Iv/Invasive Line Start (06/15/22 20:06) Ekg Tracing (06/15/22 20:06) Monitor-Rhythm Ecg Trace Only (06/15/22 20:06) Chest 1 View, Ap/Pa Only (06/15/22 20:06) Amylase (06/15/22 20:06) Bnp [place] (06/15/22 20:06) Cbc With Automated Diff (06/15/22 20:06) Comprehensive Metabolic Panel (06/15/22 20:06) Creatine Kinase (06/15/22 20:06) Creatine Kinase Mb (06/15/22 20:06) Hs C Reactive Protein (06/15/22 20:) Fibrin Degradation Products (06/15/22 20:06) Drug Screen Stat (Urine) (06/15/22 20:06) Hcg,Qualitative Serum (06/15/22 20:06) Lipase (06/15/22 20:06) Magnesium (06/15/22 20:06) Protime With Inr (06/15/22 20:06) Partial Thromboplastin Time (06/15/22 20:06) Ua Culture If Indicated (06/15/22 20:06) Erythrocyte Sedimentation Rate (06/15/22 20:06) Myoglobin Serum (06/15/22 20:06) Troponin I [place] (06/15/22 20:06) Covid 19 Inhouse Test (06/15/22 20:06) Aspirin Chewable Tablet (Baby Aspirin Ch (06/15/22 20:15) Influenza A And B By Pcr (06/15/22 20:06) Isolation Central Supply Req (06/15/22 20:06) Urine Culture (06/15/22 20:58) Medications Given in ED Current Medications Medications Dose Ordered Sig/Keri Route Start Time Stop Time Status Last Admin Dose Admin Aspirin 324 mg ONCE ONCE PO 06/15/22 20:15 06/15/22 20:16 DC 06/15/22 20:52 324 MG Vital Signs/I&O 06/15/22 20:04 Temp 36.8 Pulse 85 Resp 16 B/P (MAP) 125/73 (90) Pulse Ox 100 O2 Delivery Room Air Blood Pressure Mean: 90 Diagnostic Imaging Comments CXR--PER RADIOLOGIST REPORT AT 2035 COMPARISON: 05/19/2022 FINDINGS: Single frontal view of the chest demonstrates normal heart size and pulmonary vascularity. The lungs show somewhat low inspiratory volumes, but are otherwise clear. No large pleural effusion or pneumothorax is seen. The visualized osseous structures show no acute abnormalities. IMPRESSION: No acute cardiopulmonary process. Reviewed: Reviewed by Me Departure Impression Primary Impression: Chest pain Additional Impression: Chest wall pain Disposition: HOME, SELF-CARE Condition: Stable Departure-Patient Inst. Decision time for Depature: 21:30 Referrals: NO,LOCAL PHYSICIAN (PCP) Primary Care Physician CONCHA URIARTE MD (Family) Primary Care Physician CARLITO MARSHALL MD, KATHLEEN M MD Patient Instructions: Chest Pain (DC), Costochondritis (DC) Add. Discharge Instructions: HOME, REST TYLENOL 1 GRAM 4 TIMES A DAY NEEDED FOR PAIN LOTS OF CLEAR LIQUIDS FOLLOW UP WITH DR. MARSHALL, DELIVERY ROOM CLERK, NEXT WEEK SCHEDULED FOLLOW UP WITH DR. DAVIS AT [facility] TOMORROW FOR FURTHER CARE RETURN TO ER IF SYMPTOMS RETURN OR WORSEN All discharge instructions reviewed with patient and/or family. Voiced understanding. Scripts Prednisone (Prednisone) 20 Mg Tab 40 MG PO DAILY, #6 TAB 0 Refills Prov: ARPITA INIGUEZ DO 06/15/22 ARPITA INIGUEZ DO Jun 15, 2022 20:36
[2022-06-15 21:00] LABS: BASOPHILS # (AUTO) 0.1 10^3/uL (0.0-0.1); BASOPHILS % (AUTO) 1 % (0-10); EOSINOPHILS # (AUTO) 0.2 10^3/uL (0.0-0.3); EOSINOPHILS % (AUTO) 2 % (0-10); HEMATOCRIT 36 % (35-52); HEMOGLOBIN 12.1 g/dL (11.5-16.0); LYMPHOCYTES # (AUTO) 3.7 10^3/uL (1.0-4.0); LYMPHOCYTES % (AUTO) 34 % (12-44); MEAN CORPUSCULAR HEMOGLOBIN 28 pg (25-34); MEAN CORPUSCULAR HGB CONC 33 g/dL (32-36); MEAN CORPUSCULAR VOLUME 85 fL (80-99); MEAN PLATELET VOLUME 11.1 fL (9.0-12.2); MONOCYTES # (AUTO) 0.7 10^3/uL (0.0-1.0); MONOCYTES % (AUTO) 7 % (0-12); NEUTROPHILS % (AUTO) 56 % (42-75); PLATELET COUNT 319 10^3/uL (130-400); WHITE BLOOD COUNT 10.6 10^3/uL (4.3-11.0)
[2022-06-15 21:13] LABS: BILIRUBIN,URINE NEGATIVE (NEGATIVE); CLARITY,URINE CLEAR; COLOR,URINE YELLOW; GLUCOSE, URINE (UA) NEGATIVE (NEGATIVE); KETONES,URINE NEGATIVE (NEGATIVE); LEUKOCYTE ESTERASE ,URINE TRACE (NEGATIVE); NITRITE,URINE NEGATIVE (NEGATIVE); PROTEIN,URINE NEGATIVE (NEGATIVE)
[2022-06-15 21:18] LABS: ALANINE AMINOTRANSFERASE 16 U/L (0-55); ALBUMIN 4.2 GM/DL (3.2-4.5); ALKALINE PHOSPHATASE 91 U/L (40-136); AMYLASE 65 U/L (25-125); BILIRUBIN,TOTAL 0.2 MG/DL (0.1-1.0); BUN/CREATININE RATIO 14; CALCIUM 9.7 MG/DL (8.5-10.1); CARBON DIOXIDE 20 MMOL/L (21-32); CHLORIDE 104 MMOL/L (98-107); CREATINE KINASE 60 U/L (29-168); CREATININE SERUM 1.87 MG/DL (0.60-1.30); GFR ESTIMATED 39; GLUCOSE 89 MG/DL (70-105); LIPASE 28 U/L (8-78); MAGNESIUM 1.9 MG/DL (1.6-2.4); POTASSIUM 3.8 MMOL/L (3.6-5.0); SODIUM 136 MMOL/L (135-145); TOTAL PROTEIN 7.7 GM/DL (6.4-8.2)
[2022-06-15 21:20] LABS: ERYTHROCYTE SEDIMENTATION RATE 33 MM/HR (0-20)
[2022-06-15 21:24] LABS: BACTERIA,URINE FEW /HPF; SQUAMOUS EPITHELIAL CELL,UR 0-2 /HPF
[2022-06-15 21:25] LABS: AMPHETAMINE SCREEN, URINE NEGATIVE (NEGATIVE); BARBITURATE SCREEN URINE NEGATIVE (NEGATIVE); BENZODIAZEPINES SCREEN URINE NEGATIVE (NEGATIVE); CANNABINOID SCREEN, URINE NEGATIVE (NEGATIVE); COCAINE SCREEN URINE NEGATIVE (NEGATIVE); METHADONE STAT NEGATIVE (NEGATIVE); OPIATE SCREEN URINE NEGATIVE (NEGATIVE); OXYCODONE STAT NEGATIVE (NEGATIVE); PROPOXYPHENE STAT NEGATIVE (NEGATIVE); TRICYCLIC ANTIDEPRESSANTS SCRE NEGATIVE (NEGATIVE)
[2022-06-15 21:26] LABS: CREATINE KINASE MB 0.4 NG/ML (<6.6)
[2022-06-15 21:27] LABS: FIBRIN DEGRADATION PRODUCTS <= 0.27 UG/ML (0.00-0.49); PARTIAL THROMBOPLASTIN TIME 30 SEC (24-35); PROTHROMBIN TIME PATIENT 13.1 SEC (12.2-14.7)
[2022-06-15] MEDS ORDERED: PRD20T PO (21:32)
[2022-06-15 21:46] VITALS: BP 123/78
== END 2022-06-15 21:56 | disposition home or self-care (01) ==
LOC: EDUNIT# 19:59 → ER 20:02
DX: R07.89 Other chest pain (principal); Z20.822 Contact with and (suspected) exposure to COVID-19
CPT/HCPCS: 36415; 71045; 80053; 80306; 81000; 82150; 82550; 82553; 83690; 83735; 83874; 83880; 84484; 84703; 85025; 85379; 85610; 85652; 85730; 86141; 87088; 87636; 93005; 93041

== ENCOUNTER → 2022-06-28 | Outpatient (CLI) | payer BC ==
[~2022-06-28] MED LIST changes: +NF-SODBICA; +PRD20T PO; +[UNRECOGNIZED DRUG - CODE]
[2022-06-28 10:42] VITALS: BP 112/82
--- NOTE | 2022-06-28 11:27 | Cardiology Stress Test Report ---
Stress Test Report Date of Procedure/Referring: Date of Procedure: Jun 28, 2022 PCP No,Local Physician Admitting Physician Admitting Physician: Attending Physician: Carlito Knight MD Baseline Heart Rate: 72 Baseline Blood Pressure: Blood Pressure Systolic: 112 Blood Pressure Diastolic: 82 Baseline EKG: Baseline EKG: NSR Summary/Conclusion: Summary: In summary, the patient started exercising with a baseline heart rate, blood pressure and EKG mentioned above Patient was able to exercise for a total of 9 minutes on Dhaval protocol, METs 10.5 Maximum heart rate 184 Maximum blood pressure 141/82 Stress EKG, Minimal nondiagnostic changes Recovery EKG , Return to baseline Conclusion: 1. Good exercise tolerance for a total of 9 minutes on Dhaval protocol, 10.5 METs, achieving 92 percent of maximum expected heart rate 2. Minimal nondiagnostic EKG changes with exercise returned to baseline during recovery 3. No arrhythmia was noted CARLITO KNIGHT MD Jun 28, 2022 11:27
== END ==
LOC: CARD 10:14
PROVIDERS: ATTEND Internal Medicine Cardiovascular Disease
DX: R07.9 Chest pain, unspecified (principal)
CPT/HCPCS: 93017